=== PATIENT | male | born 1955 ===

== ENCOUNTER 2018-01-31 11:29 | Inpatient (IN) | payer SELFPAY ==
[2018-01-31 12:51] LABS: BASO # 0.1 K/uL (0.0-0.2); BASO % 0.6 % (0.0-2.0); EOS # 0.3 K/uL (0.0-0.7); EOS % 2.8 % (0.0-4.0); HEMOGLOBIN 13.7 g/dL (12.0-18.0); LYMPH # 1.6 K/uL (1.0-4.3); LYMPH % 16.9 % (20.0-40.0); MEAN CELL VOLUME 88.9 fl (80.0-94.0); MEAN CORPUSCULAR HGB CONC 33.7 g/dL (33.0-37.0); MEAN PLATELET VOLUME 9.6 fl (7.2-11.7); MONO # 0.9 K/uL (0.0-0.8); MONO % 9.1 % (0.0-10.0); NEUT # 6.8 K/uL (1.8-7.0); NEUT % 70.6 % (50.0-75.0); NRBC % 0.1 % (0.0-0.0); RBC 4.58 Mil/uL (4.40-5.90); RED CELL DISTRIBUTION WIDTH 14.8 % (11.5-14.5); WHITE BLOOD COUNT 9.6 K/uL (4.8-10.8)
[2018-01-31 13:00] LABS: INR 1.2 (0.9-1.2); PROTHROMBIN TIME 12.8 Seconds (9.8-13.1)
--- NOTE | 2018-01-31 13:15 | RAD ---
PROCEDURE: Radiographs of the left tibia and fibula. HISTORY: infection with DM COMPARISON: None available. TECHNIQUE: Frontal and lateral views obtained. FINDINGS: BONES: No fracture or destructive lesion. JOINT SPACES: Knee and ankle degenerative changes. OTHER FINDINGS: Local soft tissue swelling anterior to the mid/distal tibia. Achilles enthesophyte. Plantar calcaneal spur. Plantar fasciitis calcifications. IMPRESSION: No demonstrated fracture, dislocation or evidence of periosteal reaction. Knee and ankle degenerative changes.
[2018-01-31] MEDS ORDERED: Piperacillin/Tazobact 3.375 GM in Sodium Chloride 0.9% 100 ML IVPB STA (13:29)
[2018-01-31] MEDS ORDERED: HYDROmorphone 0.5 mg/0.5 ml ISec ONE (14:03)
[2018-01-31] MEDS ORDERED: Piperacillin/Tazobact 3.375 gm Inj IVPB ONE (14:04)
--- NOTE | 2018-01-31 14:20 | ED PDOC ---
Lower Extremity Pain/Injury Time Seen by Provider: 01/31/18 12:04 Chief Complaint (Nursing): Lower Extremity Problem/Injury Chief Complaint (Provider): Lower Extremity Problem/Injury History Per: Patient History/Exam Limitations: no limitations Onset/Duration Of Symptoms: Persistent (x1 week) Current Symptoms Are (Timing): Still Present Additional Complaint(s): 62 year old male with medical history of hypertension, presents to the emergency department with a complaint of redness, pain and swelling to the left villalpando ongoing for 1 week. Patient states symptoms are worsening with drainage from affected area, a mild fever and left-side chest pain on inspiration. He denies any chills, vomiting, diarrhea or shortness of breath. Patient also states that he is not sure if he has diabetes as he has not received any treatment. Of note, patient is from [facility] and travels frequently between both countries. PMD: none provided Past Medical History Reviewed: Historical Data, Nursing Documentation, Vital Signs Vital Signs: Last Vital Signs Temp 99.3 F 01/31/18 11:43 Pulse 94 H 01/31/18 11:43 Resp 18 01/31/18 11:43 BP 140/88 01/31/18 11:43 Pulse Ox 95 01/31/18 11:43 - Medical History PMH: Diabetes, HTN - Surgical History Surgical History: Tonsillectomy Other surgeries: left knee - Family History Family History: States: Unknown Family Hx - Social History Current smoker - smoking cessation education provided: No Alcohol: None Drugs: Denies - Home Medications Home Medications: Ambulatory Orders Medication Instructions Recorded Allopurinol [Zyloprim] 150 mg PO DAILY 01/31/18 Candesartan Cilexetil [Atacand] 16 mg PO DAILY 01/31/18 Ciprofloxacin [Cipro] 500 mg PO Q12 01/31/18 Diclofenac Sodium [Voltaren] 50 mg PO DAILY 01/31/18 - Allergies Allergies/Adverse Reactions: Allergies Allergy/AdvReac Type Severity Reaction Status Date / Time No Known Allergies Allergy Verified 01/31/18 11:43 Review of Systems ROS Statement: Except As Marked, All Systems Reviewed And Found Negative Constitutional: Positive for: Fever (mild). Negative for: Chills Respiratory: Positive for: Pleuritic Pain (left-sided). Negative for: Shortness of Breath Gastrointestinal: Negative for: Vomiting Musculoskeletal: Positive for: Leg Pain (left villalpando with redness, swelling, induration and ) Physical Exam - Reviewed Nursing Documentation Reviewed: Yes Vital Signs Reviewed: Yes - Physical Exam Appears: Positive for: Non-toxic, No Acute Distress Extremity: Positive for: Normal ROM (left knee and ankle), Other (area of redness, induration with fluctuance on lateral aspect of left leg; open wounds with drainage of fluid) Neurologic/Psych: Positive for: Alert (x2). Negative for: Motor/Sensory Deficits - Laboratory Results Result Diagrams: 01/31/18 12:35 - ECG O2 Sat by Pulse Oximetry: 95 (RA) Pulse Ox Interpretation: Normal Medical Decision Making Medical Decision Making: Initial Impression: Infected diabetic leg abscess Initial Plan: * CBC * ESR * PTT * PT * Glucose, POC * Blood culture * Wound cuture * Xray tibia/fibula (left) Time: 1300 --Accucheck: 135 Time: 1313 --Xray tibia/fibula (left) FINDINGS: BONES: No fracture or destructive lesion. JOINT SPACES: Knee and ankle degenerative changes. OTHER FINDINGS: Local soft tissue swelling anterior to the mid/distal tibia. Achilles enthesophyte. Plantar calcaneal spur. Plantar fasciitis calcifications. IMPRESSION: No demonstrated fracture, dislocation or evidence of periosteal reaction. Knee and ankle degenerative changes. Time: 1321 --Patient seen by surgical clinical reviewer. I&d of left leg abscess performed. --Due to history of diabetes and intensity of redness/swelling, hospital admission is recommended for patient. --Hospitalist, Dr. Joy, is made aware of case. --Dilaudid 1mg IVP, Vancomycin inj 250ml IVPB, Zosyn 100ml IVPB additionally ordered. Scribe Attestation: Documented by Keke Desai, acting as a scribe for Brianne Alexis MD. Provider Scribe Attestation: All medical record entries made by the Scribe were at my direction and personally dictated by me. I have reviewed the chart and agree that the record accurately reflects my personal performance of the history, physical exam, medical decision making, and the department course for this patient. I have also personally directed, reviewed, and agree with the discharge instructions and disposition. Disposition - Clinical Impression Clinical Impression: Cellulitis, Abscess - Patient ED Disposition Is Patient to be Admitted: Yes Doctor Will See Patient In The: Hospital - Disposition Disposition: Transfer of Care Disposition Time: 13:57 Condition: FAIR - Pt Status Changed To: Hospital Disposition Of: Inpatient - Admit Certification Admit to Inpatient:: After my assessment, the patient will require hospitalization for at least two midnights. This is because of the severity of symptoms shown, intensity of services needed, and/or the medical risk in this patient being treated as an outpatient. - POA Present On Arrival: None
--- NOTE | 2018-01-31 14:30 | CP.PCM.CON ---
History of Present Illness - History of Present Illness History of Present Illness: SUrgery 62 M w PMH of gout, [place] from [place] with leg pain. Pt had red erythematous lesion for on his L villalpando for 5 years. Reports trauma at 5 years ago while playing soccer. had small pustules that became large. 5 days ago started to notice pustules drainage. Pain has been getting worse and lesion is gradually enlarging. Denies fever, nausea, diarrhea. In ED the large collections of puspules is extracted. Thick chalky semisolid substances 30cc out. ARea was cleaned with betadine and wrapped. No abscess noted. Pt tolerated it well. PMH gout, HTN , DM PSH tonsilectomy SS: non smoker, no etOH , No drugs, lives with family Review of Systems - Review of Systems Review of Systems: See HPI Past Patient History - Past Social History Alcohol: None Drugs: Denies - CARDIAC Hx Hypertension: Yes - PSYCHIATRIC Hx Substance Use: No - SURGICAL HISTORY Hx Tonsillectomy: Yes Meds Allergies/Adverse Reactions: Allergies Allergy/AdvReac Type Severity Reaction Status Date / Time No Known Allergies Allergy Verified 01/31/18 11:43 - Medications Medications: Current Medications Vancomycin HCl 1 gm/ Sodium (Chloride) 250 mls @ 166.667 mls/hr IVPB STAT STA PRN Reason: Protocol Stop: 01/31/18 14:57 Piperacillin Sod/Tazobactam (Sod 3.375 gm/ Sodium Chloride) 100 mls @ 100 mls/ hr IVPB STAT STA PRN Reason: Protocol Stop: 01/31/18 14:28 Last Admin: 01/31/18 14:08 Dose: 100 mls/hr Physical Exam - Constitutional Appears: Non-toxic, No Acute Distress - Head Exam Head Exam: ATRAUMATIC, NORMAL INSPECTION, NORMOCEPHALIC - Eye Exam Eye Exam: EOMI, Normal appearance, PERRL Pupil Exam: NORMAL ACCOMODATION, PERRL - ENT Exam ENT Exam: Mucous Membranes Moist, Normal Exam - Neck Exam Neck exam: Positive for: Normal Inspection - Respiratory Exam Respiratory Exam: NORMAL BREATHING PATTERN - Cardiovascular Exam Cardiovascular Exam: REGULAR RHYTHM - GI/Abdominal Exam GI & Abdominal Exam: Normal Bowel Sounds, Soft. absent: Distended, Firm, Tenderness - Extremities Exam Extremities exam: Positive for: full ROM, tenderness, pedal pulses present. Negative for: normal inspection Additional comments: L villalpando [id number] eryhtematous, indurated lesion with multiple yellow pustules. Now with large pores after extractions. Results - Vital Signs Recent Vital Signs: Last Vital Signs Temp 99.3 F 01/31/18 11:43 Pulse 94 H 01/31/18 11:43 Resp 18 01/31/18 11:43 BP 140/88 01/31/18 11:43 Pulse Ox 95 01/31/18 14:22 - Labs Result Diagrams: 01/31/18 12:35 Labs: Laboratory Results - last 24 hr 01/31/18 01/31/18 01/31/18 12:34 12:35 12:35 WBC 9.6 RBC 4.58 Hgb 13.7 Hct 40.7 MCV 88.9 MCH 30.0 MCHC 33.7 RDW 14.8 H Plt Count 293 MPV 9.6 Neut % (Auto) 70.6 Lymph % (Auto) 16.9 L [place] % (Auto) 9.1 Eos % (Auto) 2.8 Baso % (Auto) 0.6 Neut # (Auto) 6.8 Lymph # (Auto) 1.6 [place] # (Auto) 0.9 H Eos # (Auto) 0.3 Baso # (Auto) 0.1 ESR 90 H PT 12.8 INR 1.2 APTT 31.0 POC Glucose (mg/dL) 135 H Assessment & Plan - Assessment and Plan (Free Text) Assessment: LLE lesion pustules extracted, drained 30cc semisolid substances. cleaned and dressed Dressing change PRN OK to get shower with soap Dressing change PRN Silvadene PRN f/u CX ABX recommend Wound care nurse
[2018-01-31] MEDS ORDERED: Vancomycin 1 g Inj ONE (15:16)
--- NOTE | 2018-01-31 15:42 | CP.PCM.HP ---
History of Present Illness - History of Present Illness History of Present Illness: 62 year old male with past medical history of DM, gout and HTN presents with a moderate abscess on the midline of left lower extremity. Surrounding skin is warm, tender and erythmatous. Patient states that a lesion has been present for five years following trauma to the area, however it began to drain a puss-like material 3 days ago. Patient traveled to the from [facility] 6 months ago. In [facility] he was prescribed Metformin for DM (unsure of dosage), however was told he no longer needed this medication prior to his trip to the and has not taken anything for DM since. Patient denies any vision changes or numbness/ tingling/pain in the lower extremities. He has been diagnosed with gout for 12 years and his last attack was in his left ankle approximately 6 months ago while still in [facility]. Tophi seen on right lower extremity, midline. Patient denies alcohol/drug/cigarettes. Patient A&O x3, comfortable in bed sitting upright. ROS: per HPI all other systems reviewed and negative PMH: Gout, HTN, DM2? PSH: left knee ligament FH: HTN, DM2 SH: denies alcohol/tobacco/IVDU ALLERGIES: no known allergies Present on Admission - Present on Admission Any Indicators Present on Admission: No History of DVT/PE: No History of Uncontrolled Diabetes: No Urinary Catheter: No Decubitus Ulcer Present: No History Surgical Site Infection Following: Orthopedic Procedures (ligament surgery L knee) Review of Systems - Review of Systems All systems: reviewed and no additional remarkable complaints except - Constitutional Constitutional: Fever - Musculoskeletal Musculoskeletal: As Per HPI Additional comments: -joint pain after walking, max distance about 1 hour, denies SOB -musculoskeletal pain L chest "after sitting for too long" Past Patient History - Infectious Disease Hx of Infectious Diseases: None - Past Medical History & Family History Past Medical History?: Yes Pertinent Family History: DM, HTN - Past Social History Smoking Status: Never Smoked Alcohol: None Drugs: Denies - CARDIAC Hx Hypertension: Yes - MUSCULOSKELETAL/RHEUMATOLOGICAL Hx Gout: Yes (last attack L ankle, 6 mos ago ([facility])) - PSYCHIATRIC Hx Substance Use: No - SURGICAL HISTORY Hx Tonsillectomy: Yes Meds Allergies/Adverse Reactions: Allergies Allergy/AdvReac Type Severity Reaction Status Date / Time No Known Allergies Allergy Verified 01/31/18 11:43 Physical Exam - Constitutional Appears: Well - Respiratory Exam Respiratory Exam: Clear to Auscultation Bilateral, NORMAL BREATHING PATTERN - Cardiovascular Exam Cardiovascular Exam: REGULAR RHYTHM - Expanded Lower Extremities Exam Left Lower Leg Exam: erythema, swelling, tenderness (abscess at mid-level of lower extremity). absent: normal inspection - Skin Skin Exam: Warm Additional comments: tophi on right lower extremity Results - Vital Signs Recent Vital Signs: Last Vital Signs Temp 99.3 F 01/31/18 11:43 Pulse 72 01/31/18 15:12 Resp 16 01/31/18 15:12 BP 154/81 H 01/31/18 15:12 Pulse Ox 96 01/31/18 15:12 - Labs Result Diagrams: 01/31/18 12:35 01/31/18 15:46 Labs: Laboratory Results - last 24 hr 01/31/18 01/31/18 01/31/18 12:34 12:35 12:35 WBC 9.6 RBC 4.58 Hgb 13.7 Hct 40.7 MCV 88.9 MCH 30.0 MCHC 33.7 RDW 14.8 H Plt Count 293 MPV 9.6 Neut % (Auto) 70.6 Lymph % (Auto) 16.9 L [place] % (Auto) 9.1 Eos % (Auto) 2.8 Baso % (Auto) 0.6 Neut # (Auto) 6.8 Lymph # (Auto) 1.6 [place] # (Auto) 0.9 H Eos # (Auto) 0.3 Baso # (Auto) 0.1 ESR 90 H PT 12.8 INR 1.2 APTT 31.0 POC Glucose (mg/dL) 135 H Assessment & Plan - Assessment and Plan (Free Text) Assessment: 62 year old male admitted for acute cellulitis of chronic abscess of the left lower extremity. 1. Acute cellulitis of chronic lesion -CBC, wound culture, blood culture -X-ray findings: Local soft tissue swelling anterior to the mid/distal tibia. Achilles enthesophyte. Plantar calcaneal spur. Plantar fasciitis calcifications. -Surgery I&D performed in ED: Thick chalky semisolid substances 30cc -Zosyn 3.375 gm in NaCl, Vanco HCl 1 gm in NaCl -Consult surgery -Pain management as needed -Dressing changes/wound care PRN -Bilateral lower extremity doppler to evaluate for DVTs 2. Gout - Continue home meds: allopurinol 150 daily 3. HTN -Valsartan 160 mg daily 4. DM 2 -Hg A1C 5. DVT prophylaxis -Lovenox
[2018-01-31 16:00] LABS: ALB/GLOB RATIO 0.9 (1.0-2.1); ALBUMIN 4.1 g/dL (3.5-5.0); ALT/SGPT 23 U/L (21-72); AST/SGOT 29 U/L (17-59); BLOOD UREA NITROGEN 17 mg/dl (9-20); GFR AFRICAN-AMERICAN > 60; GFR NON-AFRICAN AMERICAN > 60
[2018-01-31] MEDS ORDERED: Piperacillin/Tazobact 3.375 GM in Sodium Chloride 0.9% 100 ML IVPB SCH (16:00)
[2018-01-31] MEDS ORDERED: Oxycodone/Acetaminophen 5/325 mg Tab PO PRN (19:56)
[2018-01-31] MEDS: Piperacillin/Tazobact 3.375 GM in Sodium Chloride 0.9% 100 ML IVPB SCH (20:05)
[2018-01-31] MEDS ORDERED: Pneumococcal 23-Valent Vaccine IM ONE (21:00)
[2018-02-01] MEDS: Piperacillin/Tazobact 3.375 GM in Sodium Chloride 0.9% 100 ML IVPB SCH ×4 (02:00→20:52)
[2018-02-01 07:18] LABS: HEMOGLOBIN 13.2 g/dL (12.0-18.0); MEAN CELL VOLUME 88.9 fl (80.0-94.0); MEAN CORPUSCULAR HGB CONC 33.8 g/dL (33.0-37.0); RBC 4.41 Mil/uL (4.40-5.90); RED CELL DISTRIBUTION WIDTH 14.3 % (11.5-14.5); WHITE BLOOD COUNT 9.6 K/uL (4.8-10.8)
--- NOTE | 2018-02-01 07:50 | CP.PCM.PN ---
Subjective - Date & Time of Evaluation Date of Evaluation: 02/01/18 Time of Evaluation: 07:43 - Subjective Subjective: Surgery PT seen and examined. LLE tophi drained this AM. Pain improved. Objective - Vital Signs/Intake and Output Vital Signs (last 24 hours): Temp Pulse Resp BP Pulse Ox 98.6 F 70 18 129/70 98 02/01/18 00:58 02/01/18 00:58 02/01/18 00:58 02/01/18 00:58 02/01/18 00:58 - Medications Medications: Current Medications Acetaminophen (Tylenol 325mg Tab) 650 mg PO Q6 PRN PRN Reason: Pain, Mild (1-3) Allopurinol (Zyloprim) 150 mg PO DAILY [facility] Colchicine (Colocrys) 1.2 mg PO ONCE ONE Stop: 02/01/18 07:40 Colchicine (Colocrys) 0.6 mg PO ONCE ONE Stop: 02/01/18 09:01 Enoxaparin Sodium (Lovenox) 40 mg SC DAILY [facility] PRN Reason: Protocol Vancomycin HCl 1 gm/ Sodium (Chloride) 250 mls @ 166.667 mls/hr IVPB Q12@0300, 1500 [facility] PRN Reason: Protocol Last Admin: 02/01/18 03:22 Dose: 166.667 mls/hr Piperacillin Sod/Tazobactam (Sod 3.375 gm/ Sodium Chloride) 100 mls @ 100 mls/ hr IVPB 0200,0800,1400,2000 [facility] PRN Reason: Protocol Last Admin: 02/01/18 02:00 Dose: 100 mls/hr Ibuprofen (Motrin Tab) 400 mg PO Q6 [facility] Ketorolac Tromethamine (Toradol) 15 mg IM Q6 PRN PRN Reason: Pain, severe (8-10) Oxycodone/Acetaminophen (Percocet 5/325 Mg Tab) 1 tab PO Q6 PRN PRN Reason: Pain, moderate (4-7) Stop: 02/03/18 19:57 Last Admin: 01/31/18 20:03 Dose: 1 tab Silver Sulfadiazine (Silvadene 1% 20 Gm) 1 ea TOP DAILY [facility] Valsartan (Diovan) 160 mg PO DAILY [facility] - Labs Labs: 02/01/18 06:41 01/31/18 15:46 PT 12.8 Seconds (9.8-13.1) 01/31/18 12:35 INR 1.2 (0.9-1.2) 01/31/18 12:35 APTT 31.0 Seconds (25.6-37.1) 01/31/18 12:35 - Constitutional Appears: Non-toxic - Head Exam Head Exam: ATRAUMATIC, NORMAL INSPECTION, NORMOCEPHALIC - Eye Exam Eye Exam: EOMI, Normal appearance, PERRL Pupil Exam: NORMAL ACCOMODATION, PERRL - ENT Exam ENT Exam: Mucous Membranes Moist, Normal Exam - Neck Exam Neck Exam: Full ROM, Normal Inspection. absent: Lymphadenopathy - Respiratory Exam Respiratory Exam: Clear to Ausculation Bilateral, NORMAL BREATHING PATTERN - Cardiovascular Exam Cardiovascular Exam: REGULAR RHYTHM, +S1, +S2. absent: Murmur - GI/Abdominal Exam GI & Abdominal Exam: Soft. absent: Tenderness - Rectal Exam Rectal Exam: NORMAL INSPECTION - Extremities Exam Extremities Exam: Full ROM, Pedal Edema, Tenderness. absent: Normal Inspection Additional comments: LLE villalpando eryhtema [id number]. large pores draining gouty, calcified semisolid material. 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 extract semisolid by pressure PRN -Silvadene for cellulitis. APply telfa. and wrap with kerlix. -ABX for cellulitis -NSAIDs for Gout -Recommend rheumatology -colchicin 1.2mg and 0.6mg 1hr later ordered for acute gout -Allopurinol -No acute surgical intervention at this time. Can get outpatient biopsy DW Dr. King
[2018-02-01] MEDS: Silver Sulfadiazine 1% Cream (20 gm) TOP SCH (08:36)
[2018-02-01] MEDS: Enoxaparin 40 mg Syringe SC SCH (08:37)
--- NOTE | 2018-02-01 10:22 | CP.PCM.PN ---
Subjective - Date & Time of Evaluation Date of Evaluation: 02/01/18 Time of Evaluation: 09:45 - Subjective Subjective: Patient seen and examined. Claimed much improvement with regards to pain after I &D done this morning Objective - Vital Signs/Intake and Output Vital Signs (last 24 hours): Temp Pulse Resp BP Pulse Ox 98.2 F 82 20 172/84 H 97 02/01/18 08:14 02/01/18 08:14 02/01/18 08:14 02/01/18 08:14 02/01/18 08:14 - Medications Medications: Current Medications Acetaminophen (Tylenol 325mg Tab) 650 mg PO Q6 PRN PRN Reason: Pain, Mild (1-3) Allopurinol (Zyloprim) 150 mg PO DAILY [facility] Last Admin: 02/01/18 08:38 Dose: 150 mg Enoxaparin Sodium (Lovenox) 40 mg SC DAILY [facility] PRN Reason: Protocol Last Admin: 02/01/18 08:37 Dose: 40 mg Vancomycin HCl 1 gm/ Sodium (Chloride) 250 mls @ 166.667 mls/hr IVPB Q12@0300, 1500 [facility] PRN Reason: Protocol Last Admin: 02/01/18 03:22 Dose: 166.667 mls/hr Piperacillin Sod/Tazobactam (Sod 3.375 gm/ Sodium Chloride) 100 mls @ 100 mls/ hr IVPB 0200,0800,1400,2000 [facility] PRN Reason: Protocol Last Admin: 02/01/18 08:36 Dose: 100 mls/hr Ibuprofen (Motrin Tab) 400 mg PO Q6 [facility] Oxycodone/Acetaminophen (Percocet 5/325 Mg Tab) 1 tab PO Q6 PRN PRN Reason: Pain, moderate (4-7) Stop: 02/03/18 19:57 Last Admin: 01/31/18 20:03 Dose: 1 tab Probenecid (Probenecid) 500 mg PO BID [facility] Silver Sulfadiazine (Silvadene 1% 20 Gm) 1 ea TOP DAILY [facility] Last Admin: 02/01/18 08:36 Dose: 1 applic Valsartan (Diovan) 160 mg PO DAILY [facility] Last Admin: 02/01/18 08:36 Dose: 160 mg - Labs Labs: 02/01/18 06:41 01/31/18 15:46 PT 12.8 Seconds (9.8-13.1) 01/31/18 12:35 INR 1.2 (0.9-1.2) 01/31/18 12:35 APTT 31.0 Seconds (25.6-37.1) 01/31/18 12:35 - Constitutional Appears: No Acute Distress - Head Exam Head Exam: ATRAUMATIC - Eye Exam Eye Exam: absent: Scleral icterus - ENT Exam ENT Exam: Mucous Membranes Moist - Neck Exam Neck Exam: absent: Meningismus - Respiratory Exam Respiratory Exam: absent: Rales, Rhonchi, Wheezes, Respiratory Distress - Cardiovascular Exam Cardiovascular Exam: REGULAR RHYTHM, +S1, +S2 - GI/Abdominal Exam GI & Abdominal Exam: Soft. absent: Tenderness - Rectal Exam Rectal Exam: Deferred - Extremities Exam Extremities Exam: absent: Normal Inspection (dressing on left leg clean, dry and intact) - Back Exam Back Exam: NORMAL INSPECTION - Neurological Exam Neurological Exam: Alert, Oriented x3 - Psychiatric Exam Psychiatric exam: Normal Affect - Skin Skin Exam: Dry, Intact Assessment and Plan - Assessment and Plan (Free Text) Assessment: 67 yo male with history of DM2, Gout and HTN presented with pain and swelling anterior, midline of left lower extremity which started to drain pus like material. Lesion had been present since 5 yrs ago after trauma while playing soccer. 1. Gout I&D done this morning producing accumulated tophi Allopurinol 150mg PO daily Probenecid 500mg PO BID continue IV Zosyn continue Ibuprofen 400mg PO q 6hrs send material drained from lesion for culture 2. HTN BP stable continue Diovan 160mg PO daily 3. DM2 BS controlled accuchek ACHS
[2018-02-02] MEDS: Piperacillin/Tazobact 3.375 GM in Sodium Chloride 0.9% 100 ML IVPB SCH ×4 (02:33→20:30)
--- NOTE | 2018-02-02 07:29 | CP.PCM.PN ---
Subjective - Date & Time of Evaluation Date of Evaluation: 02/02/18 Time of Evaluation: 07:23 - Subjective Subjective: General Surgery - Dr. King Pt [facility]. [facility]. Pt states pain slightly improved in the left leg, only hurts when palpated. He denies any Fevers/Chills/SOB/Chest pain. Pt aware of plan for OR debridement tomorrow. Objective - Vital Signs/Intake and Output Vital Signs (last 24 hours): Temp Pulse Resp BP Pulse Ox 97.6 F 68 20 134/79 96 02/02/18 00:35 02/02/18 00:35 02/02/18 00:35 02/02/18 00:35 02/02/18 00:35 - Medications Medications: Current Medications Acetaminophen (Tylenol 325mg Tab) 650 mg PO Q6 PRN PRN Reason: Pain, Mild (1-3) Allopurinol (Zyloprim) 150 mg PO DAILY [facility] Last Admin: 02/01/18 08:38 Dose: 150 mg Enoxaparin Sodium (Lovenox) 40 mg SC DAILY [facility] PRN Reason: Protocol Last Admin: 02/01/18 08:37 Dose: 40 mg Vancomycin HCl 1 gm/ Sodium (Chloride) 250 mls @ 166.667 mls/hr IVPB Q12@0300, 1500 [facility] PRN Reason: Protocol Last Admin: 02/02/18 02:34 Dose: 166.667 mls/hr Piperacillin Sod/Tazobactam (Sod 3.375 gm/ Sodium Chloride) 100 mls @ 100 mls/ hr IVPB 0200,0800,1400,2000 [facility] PRN Reason: Protocol Last Admin: 02/02/18 02:33 Dose: 100 mls/hr Ibuprofen (Motrin Tab) 400 mg PO Q6 [facility] Last Admin: 02/02/18 04:00 Dose: Not Given Oxycodone/Acetaminophen (Percocet 5/325 Mg Tab) 1 tab PO Q6 PRN PRN Reason: Pain, moderate (4-7) Stop: 02/03/18 19:57 Last Admin: 01/31/18 20:03 Dose: 1 tab Probenecid (Probenecid) 500 mg PO BID [facility] Last Admin: 02/01/18 22:44 Dose: 500 mg Silver Sulfadiazine (Silvadene 1% 20 Gm) 1 ea TOP DAILY [facility] Last Admin: 02/01/18 08:36 Dose: 1 applic Valsartan (Diovan) 160 mg PO DAILY [facility] Last Admin: 02/01/18 08:36 Dose: 160 mg - Labs Labs: 02/01/18 06:41 01/31/18 15:46 PT 12.8 Seconds (9.8-13.1) 01/31/18 12:35 INR 1.2 (0.9-1.2) 01/31/18 12:35 APTT 31.0 Seconds (25.6-37.1) 01/31/18 12:35 - Constitutional Appears: No Acute Distress - Head Exam Head Exam: ATRAUMATIC, NORMAL INSPECTION, NORMOCEPHALIC - Eye Exam Eye Exam: Normal appearance - Respiratory Exam Respiratory Exam: NORMAL BREATHING PATTERN. absent: Respiratory Distress - Cardiovascular Exam Cardiovascular Exam: REGULAR RHYTHM - Extremities Exam Additional comments: LLE approx 5x5cm area of errythema and tenderness with tophi and some purulent drainage - Neurological Exam Neurological Exam: Alert, Oriented x3 - Psychiatric Exam Psychiatric exam: Normal Affect, Normal Mood - Skin Skin Exam: Dry, Intact Assessment and Plan - Assessment and Plan (Free Text) Assessment: 62M w/ Acute on chronic grout attack and infected tophi LLE -F/U Wound Cultures - Gram + Cocci on Prelim -Wound care -Abx for cellulitis -Gout medications as per primary team -OR tomorrow for wound debridement -NPO after midnight TRU Sena PGY4
[2018-02-02] MEDS: Silver Sulfadiazine 1% Cream (20 gm) TOP SCH (08:46)
[2018-02-02] MEDS: Enoxaparin 40 mg Syringe SC SCH (08:46)
--- NOTE | 2018-02-02 09:01 | US ---
PROCEDURE: Bilateral lower extremity venous duplex Doppler. HISTORY: DVT rule out COMPARISON: None available. TECHNIQUE: Bilateral common femoral, superficial femoral, popliteal and posterior tibial veins were evaluated. Flow was assessed with color Doppler, compressibility, assessment of phasic flow and augmentation response. FINDINGS: COMMON FEMORAL VEIN: Right CFV: Unremarkable. Left CFV: Unremarkable. SUPERFICIAL FEMORAL VEIN: Right SFV: Unremarkable. Left SFV: Unremarkable. POPLITEAL VEIN: Right Popliteal: Unremarkable. Left Popliteal: Unremarkable. POSTERIOR TIBIAL VEIN: Right PTV: Unremarkable. Left PTV: Unremarkable. OTHER FINDINGS: None. IMPRESSION: No evidence of deep venous thrombosis.
--- NOTE | 2018-02-02 12:04 | CP.PCM.PN ---
Subjective - Date & Time of Evaluation Date of Evaluation: 02/02/18 Time of Evaluation: 10:00 - Subjective Subjective: Patient seen and examined. Pain much relieved since I&D yesterday. Objective - Vital Signs/Intake and Output Vital Signs (last 24 hours): Temp Pulse Resp BP Pulse Ox 97.3 F L 61 20 137/77 98 02/02/18 08:10 02/02/18 08:10 02/02/18 08:10 02/02/18 08:10 02/02/18 08:10 - Medications Medications: Current Medications Acetaminophen (Tylenol 325mg Tab) 650 mg PO Q6 PRN PRN Reason: Pain, Mild (1-3) Allopurinol (Zyloprim) 150 mg PO DAILY [facility] Last Admin: 02/02/18 08:47 Dose: 150 mg Enoxaparin Sodium (Lovenox) 40 mg SC DAILY [facility] PRN Reason: Protocol Last Admin: 02/02/18 08:46 Dose: 40 mg Vancomycin HCl 1 gm/ Sodium (Chloride) 250 mls @ 166.667 mls/hr IVPB Q12@0300, 1500 [facility] PRN Reason: Protocol Last Admin: 02/02/18 02:34 Dose: 166.667 mls/hr Piperacillin Sod/Tazobactam (Sod 3.375 gm/ Sodium Chloride) 100 mls @ 100 mls/ hr IVPB 0200,0800,1400,2000 [facility] PRN Reason: Protocol Last Admin: 02/02/18 08:47 Dose: 100 mls/hr Ibuprofen (Motrin Tab) 400 mg PO Q6 [facility] Last Admin: 02/02/18 09:33 Dose: 400 mg Oxycodone/Acetaminophen (Percocet 5/325 Mg Tab) 1 tab PO Q6 PRN PRN Reason: Pain, moderate (4-7) Stop: 02/03/18 19:57 Last Admin: 01/31/18 20:03 Dose: 1 tab Probenecid (Probenecid) 500 mg PO BID [facility] Last Admin: 02/02/18 08:46 Dose: 500 mg Silver Sulfadiazine (Silvadene 1% 20 Gm) 1 ea TOP DAILY [facility] Last Admin: 02/02/18 08:46 Dose: 1 applic Valsartan (Diovan) 160 mg PO DAILY [facility] Last Admin: 02/02/18 08:46 Dose: 160 mg - Labs Labs: 02/01/18 06:41 01/31/18 15:46 PT 12.8 Seconds (9.8-13.1) 01/31/18 12:35 INR 1.2 (0.9-1.2) 01/31/18 12:35 APTT 31.0 Seconds (25.6-37.1) 01/31/18 12:35 - Constitutional Appears: No Acute Distress - Head Exam Head Exam: ATRAUMATIC - Eye Exam Eye Exam: absent: Scleral icterus - ENT Exam ENT Exam: Mucous Membranes Moist - Neck Exam Neck Exam: absent: Meningismus - Respiratory Exam Respiratory Exam: absent: Rales, Rhonchi, Wheezes, Respiratory Distress - Cardiovascular Exam Cardiovascular Exam: REGULAR RHYTHM, +S1, +S2 - GI/Abdominal Exam GI & Abdominal Exam: Soft. absent: Tenderness - Rectal Exam Rectal Exam: Deferred - Extremities Exam Extremities Exam: absent: Normal Inspection (dressing on left leg intact, clean and dry) - Back Exam Back Exam: NORMAL INSPECTION - Neurological Exam Neurological Exam: Alert, Oriented x3 - Psychiatric Exam Psychiatric exam: Normal Affect - Skin Skin Exam: Dry, Intact Assessment and Plan - Assessment and Plan (Free Text) Assessment: 67 yo male with history of DM2, Gout and HTN presented with pain and swelling anterior, midline of left lower extremity which started to drain pus like material. Lesion had been present since 5 yrs ago after trauma while playing soccer. 1. Gout with Abscess I&D done yesterday was able to extract some tophi and pus wound culture positive for Beta Hemolytic Strep Group B for debridement tomorrow continue IV Zosyn and Vancomycin continue Ibuprofen 400mg PO q 6hrs 2. HTN BP stable continue Diovan 160mg PO daily 3. DM2 BS controlled accuchek ACHS 4. DVT prophylaxis on Lovenox
--- NOTE | 2018-02-02 14:14 | PN ---
DATE: 02/02/2018 The patient is seen on the floor. The left leg will be debrided tomorrow. There is a very large tophus, which is infected and draining. It is being manually debrided as much as possible. A venogram is unremarkable. The patient to be made n.p.o. after midnight for debridement sometime tomorrow. Nitin King MD
[2018-02-03] MEDS: Piperacillin/Tazobact 3.375 GM in Sodium Chloride 0.9% 100 ML IVPB SCH (01:42)
[2018-02-03 06:31] LABS: HEMOGLOBIN 12.8 g/dL (12.0-18.0); MEAN CORPUSCULAR HEMOGLOBIN 29.7 pg (27.0-31.0); RBC 4.32 Mil/uL (4.40-5.90); RED CELL DISTRIBUTION WIDTH 14.3 % (11.5-14.5); WHITE BLOOD COUNT 6.2 K/uL (4.8-10.8)
[2018-02-03 06:36] LABS: ALB/GLOB RATIO 0.9 (1.0-2.1); ALBUMIN 3.7 g/dL (3.5-5.0); ALT/SGPT 27 U/L (21-72); AST/SGOT 32 U/L (17-59); BLOOD UREA NITROGEN 17 mg/dl (9-20); CALCIUM 8.8 mg/dL (8.4-10.2); GFR AFRICAN-AMERICAN > 60; GFR NON-AFRICAN AMERICAN > 60
[2018-02-03 06:55] LABS: INR 1.1 (0.9-1.2); PARTIAL THROMBOPLASTIN TIME 33.5 Seconds (25.6-37.1); PROTHROMBIN TIME 12.4 Seconds (9.8-13.1)
[2018-02-03] MEDS ORDERED: Succinylcholine 200 mg/10 ml Inj IV ONE (07:56)
[2018-02-03 08:00] VITALS: RESP 20; TEMP 97.9
[2018-02-03] MEDS ORDERED: Propofol 10 mg/ml Inj (20 ML) ONE (08:39)
[2018-02-03] MEDS ORDERED: Midazolam 2 MG/2 ML VIAL ONE (08:39)
[2018-02-03] MEDS ORDERED: Etomidate 20 mg/10ml Inj IV ONE (08:40)
[2018-02-03] MEDS ORDERED: Lactated Ringer's 1,000 ML IV ONE (08:45)
[2018-02-03] MEDS ORDERED: Piperacillin/Tazobact 3.375 gm Inj IVPB ONE (08:55)
[2018-02-03] MEDS ORDERED: HYDROmorphone 0.5 mg/0.5 ml ISec IVP PRN (09:20)
--- NOTE | 2018-02-03 09:26 | PCM.SURG1 ---
Surgeon's Initial Post Op Note - Surgeon's Notes Surgeon: Dr. Juares Towel Hemmer: Alexis Joy PGY3, Madelyn PGY4 Type of Anesthesia: General LMA Anesthesia Administered By: Dr. 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
[2018-02-03 12:04] VITALS: BP 163/94; PULSE 73; O2SAT 99
[2018-02-03] MEDS: Silver Sulfadiazine 1% Cream (20 gm) TOP SCH (13:48)
--- NOTE | 2018-02-03 13:58 | CP.PCM.DIS ---
Provider - Provider Date of Admission: 01/31/18 13:21 Attending physician: Sherry Joy DO Consults: Dr Waite Time Spent in preparation of Discharge (in minutes): 25 Diagnosis - Discharge Diagnosis (1) Gout Status: Acute Comment: Debridement of left villalpando lesion revealed chalky material most likely tophi material (2) HTN (hypertension) Status: Chronic Comment: BP stable. continue Diovan 160mg PO daily (3) DM2 (diabetes mellitus, type 2) Status: Chronic Comment: BS controlled Hospital Course - Lab Results Lab Results: Micro Results 01/31/18 12:30 Blood Blood Culture - Preliminary NO GROWTH AFTER 3 DAYS 01/31/18 12:35 Abscess - Leg Gram Stain - Final 01/31/18 12:35 Abscess - Leg Wound Culture - Final Beta Hemolytic Strep Group B Staphylococcus Aureus 01/31/18 14:18 Blood Blood Culture - Preliminary NO GROWTH AFTER 48 HOURS Most Recent Lab Values WBC 6.2 K/uL (4.8-10.8) 02/03/18 05:30 RBC 4.32 Mil/uL (4.40-5.90) L 02/03/18 05:30 Hgb 12.8 g/dL (12.0-18.0) 02/03/18 05:30 Hct 38.8 % (35.0-51.0) 02/03/18 05:30 MCV 90.0 fl (80.0-94.0) 02/03/18 05:30 MCH 29.7 pg (27.0-31.0) 02/03/18 05:30 MCHC 33.0 g/dL (33.0-37.0) 02/03/18 05:30 RDW 14.3 % (11.5-14.5) 02/03/18 05:30 Plt Count 281 K/uL (130-400) 02/03/18 05:30 MPV 9.6 fl (7.2-11.7) 01/31/18 12:35 Neut % (Auto) 70.6 % (50.0-75.0) 01/31/18 12:35 Lymph % (Auto) 16.9 % (20.0-40.0) L 01/31/18 12:35 [place] % (Auto) 9.1 % (0.0-10.0) 01/31/18 12:35 Eos % (Auto) 2.8 % (0.0-4.0) 01/31/18 12:35 Baso % (Auto) 0.6 % (0.0-2.0) 01/31/18 12:35 Neut # (Auto) 6.8 K/uL (1.8-7.0) 01/31/18 12:35 Lymph # (Auto) 1.6 K/uL (1.0-4.3) 01/31/18 12:35 [place] # (Auto) 0.9 K/uL (0.0-0.8) H 01/31/18 12:35 Eos # (Auto) 0.3 K/uL (0.0-0.7) 01/31/18 12:35 Baso # (Auto) 0.1 K/uL (0.0-0.2) 01/31/18 12:35 ESR 90 mm/hr (0-20) H 01/31/18 12:35 PT 12.4 Seconds (9.8-13.1) 02/03/18 05:30 INR 1.1 (0.9-1.2) 02/03/18 05:30 APTT 33.5 Seconds (25.6-37.1) 02/03/18 05:30 Sodium 140 mmol/l (132-148) 02/03/18 05:25 Potassium 4.1 MMOL/L (3.6-5.0) 02/03/18 05:25 Chloride 106 mmol/L (98-107) 02/03/18 05:25 Carbon Dioxide 22 mmol/L (22-30) 02/03/18 05:25 Anion Gap 16 (10-20) 02/03/18 05:25 BUN 17 mg/dl (9-20) 02/03/18 05:25 Creatinine 1.2 mg/dl (0.8-1.5) 02/03/18 05:25 Est GFR ( Amer) > 60 02/03/18 05:25 Est GFR (Non-Af Amer) > 60 02/03/18 05:25 POC Glucose (mg/dL) 127 mg/dL (65-110) H 02/03/18 10:36 Random Glucose 113 mg/dL (75-110) H 02/03/18 05:25 Uric Acid 5.4 mg/Dl (3.5-8.5) 02/01/18 09:41 Calcium 8.8 mg/dL (8.4-10.2) 02/03/18 05:25 Total Bilirubin 0.6 mg/dl (0.2-1.3) 02/03/18 05:25 AST 32 U/L (17-59) 02/03/18 05:25 ALT 27 U/L (21-72) 02/03/18 05:25 Alkaline Phosphatase 187 U/L (38-126) H 02/03/18 05:25 Total Protein 7.6 G/DL (6.3-8.2) 02/03/18 05:25 Albumin 3.7 g/dL (3.5-5.0) 02/03/18 05:25 Globulin 3.9 gm/dL (2.2-3.9) 02/03/18 05:25 Albumin/Globulin Ratio 0.9 (1.0-2.1) L 02/03/18 05:25 - Hospital Course Hospital Course: 67 yo male with history of DM2, Gout and HTN presented with pain and swelling anterior, midline of left lower extremity which started to drain pus like material. Lesion had been present since 5 yrs ago after trauma while playing soccer. I&D was done followed a day later with debridement which revealed about 10cc of tophi. Patient discharged in stable condition with 10 days of Augmentin. Patient to follow with Dr Waite in a week. Discharge Exam - Head Exam Head Exam: ATRAUMATIC - Eye Exam Eye Exam: PERRL - ENT Exam ENT Exam: Mucous Membranes Moist - Respiratory Exam Respiratory Exam: absent: Rales, Rhonchi, Wheezes, Respiratory Distress - Cardiovascular Exam Cardiovascular Exam: REGULAR RHYTHM, +S1, +S2 - GI/Abdominal Exam GI & Abdominal Exam: Soft. absent: Tenderness - Rectal Exam Rectal Exam: Deferred - Extremities Exam Additional comments: dressing intact and dry on left leg - Back Exam Back exam: NORMAL INSPECTION - Neurological Exam Neurological exam: Alert, Oriented x3 - Psychiatric Exam Psychiatric exam: Normal Affect - Skin Skin Exam: Dry, Intact Discharge Plan - Discharge Medications Prescriptions: Amoxicillin/Clavulanate [Augmentin 875 MG-125 MG] 1 tab PO BID #20 tab - Follow Up Plan Condition: FAIR Disposition: HOME/ ROUTINE Instructions: Abscess Incision and Drainage (DC), Cellulitis (DC) Additional Instructions: follow up with dr waite 1 week santhosh oconnell. poner bacitracin y dru ortega. Referrals: [facility] [Outside] Nitin Waite MD [Staff Provider] -
--- NOTE | 2018-02-03 21:53 | OP ---
PROCEDURE DATE: 02/03/2018 SURGEON: Nitin King MD ANESTHESIOLOGIST: Panda Remy MD ANESTHESIA ADMINISTERED: General LMA. PREOPERATIVE DIAGNOSIS: Infected left lower extremity tophi. POSTOPERATIVE DIAGNOSIS: Infected left lower extremity tophi. FINDINGS: Infected left lower extremity tophi with 10 mL expressed. ESTIMATED BLOOD LOSS: 5 mL. DRAINS: None. COMPLICATIONS: None. DESCRIPTION OF PROCEDURE: The patient was brought into the operating room from the floor. Time-out was performed. Name, identification number, and marked operative site were confirmed. The patient was then transferred to the operating table and positioned appropriately. General anesthesia was utilized with LMA mask. The patient was prepped and draped in a usual sterile fashion with Betadine. The skin was entered with #15 blade, and using curette, 10 mL of tophi gouty material was expressed. It was a white chalky material, and the pocket was explored with a Sari clamp. The wound was lavaged with peroxide and saline. No drain was placed, and Betadine-soaked dressing was applied and Kerlix was applied. Hemostasis was confirmed. The patient was awakened, extubated, and transported to the recovery room in a satisfactory condition. All sponge and instruments were counted and correct at the end of the procedure. Estimated blood loss for this procedure was less than [address] King was present for the critical portion of the operation. Alexis Joy DO Kashif King MD
== END 2018-02-03 14:05 | disposition home or self-care (01) | DRG 581 ==
LOC: H.ER 11:29 → H.ERHOLD 13:21 → H.MEDSURG1 17:03
PROVIDERS: ADMIT Student in an Organized Health Care Education/Training Program; ATTEND Student in an Organized Health Care Education/Training Program
PROC: 0J9P0ZZ Drainage of Left Lower Leg Subcutaneous Tissue and Fascia, Open Approach (ICD-10-PCS; principal; 2018-02-03 08:15)
DX: L03.116 Cellulitis of left lower limb (principal); L02.416 Cutaneous abscess of left lower limb; E11.9 Type 2 diabetes mellitus without complications; I10 Essential (primary) hypertension; M1A.9XX1 Chronic gout, unspecified, with tophus (tophi); M72.2 Plantar fascial fibromatosis; M77.30 Calcaneal spur, unspecified foot